=== PATIENT | male | born 1970 | race Caucasian/White ===

== ENCOUNTER 2017-04-16 17:10 | Emergency (ER) | payer SELFPAY ==
[2017-04-16] MEDS ORDERED: Ketorolac 60 MG/2 ML SDV IM ONE (17:37)
[2017-04-16 19:52] VITALS: BP 119/77
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
[2017-04-16] MEDS ORDERED: Acetaminophen/HYDROcodone 325-5 MG Tab PO ONE (21:01)
== END 2017-04-16 23:10 | disposition home or self-care (01) ==
LOC: FB.ED 17:10
DX: S09.90XA Unspecified injury of head, initial encounter (principal); K04.7 Periapical abscess without sinus; R22.9 Localized swelling, mass and lump, unspecified; M54.89 Other dorsalgia; J45.909 Unspecified asthma, uncomplicated; F17.210 Nicotine dependence, cigarettes, uncomplicated; Z88.1 Allergy status to other antibiotic agents
CPT/HCPCS: 70450; 70486; 96372; 99283; A9270; J1885; J2360; 99284

== ENCOUNTER 2017-04-23 19:22 | Emergency (ER) | payer SELFPAY ==
[2017-04-23] MEDS ORDERED: Lidocaine 1% with EPINEPHrine 1:100,000 10 ML MDV INJECT ONE (19:30)
[2017-04-23] MEDS ORDERED: cefTRIAXone 1,000 MG VIAL IM ONE (20:35)
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
[2017-04-23 21:51] VITALS: BP 111/62
== END 2017-04-23 21:15 | disposition home or self-care (01) ==
LOC: FB.ED 19:22
DX: S01.01XD Laceration without foreign body of scalp, subsequent encounter (principal); L02.811 Cutaneous abscess of head [any part, except face]; W19.XXXD Unspecified fall, subsequent encounter
CPT/HCPCS: 10060; 87070; 87075; 87205; 96372; 99282; 99283; A4217; J0696

== ENCOUNTER 2024-05-02 20:40 | Emergency (ER) | payer BC ==
[2024-05-02] MEDS ORDERED: Cephalexin 500 MG Cap PO ONE (20:41)
[2024-05-02] MEDS ORDERED: Lidocaine 2% 20 ML MDV INFILT ONE (20:41)
[2024-05-02] MEDS: Diphtheria,Pertussis(Acell),Tetanus Vaccine 0.5 ML Syringe IM ONE (21:40)
[2024-05-02 22:44] VITALS: BP 123/80; PULSE 77
== END 2024-05-02 21:52 | disposition home or self-care (01) ==
LOC: FB.ED 20:40
DX: S61.213A Laceration without foreign body of left middle finger without damage to nail, initial encounter (principal); Z79.899 Other long term (current) drug therapy; Z90.49 Acquired absence of other specified parts of digestive tract; Z23 Encounter for immunization; W26.8XXA Contact with other sharp object(s), not elsewhere classified, initial encounter; Y93.89 Activity, other specified
CPT/HCPCS: 12001; 90471; 90715; 99282-25; 99283; A9270-GY

== ENCOUNTER 2024-08-01 19:47 | Emergency (ER) | payer BC ==
[2024-08-01] MEDS ORDERED: Sulfamethoxazole/Trimethoprim 800-160 MG Tab PO ONE (19:48)
[2024-08-01 20:33] VITALS: BP 106/73; PULSE 86
== END 2024-08-01 20:22 | disposition home or self-care (01) ==
LOC: FB.ED 19:47
DX: L03.114 Cellulitis of left upper limb (principal); Z90.49 Acquired absence of other specified parts of digestive tract
CPT/HCPCS: 99283; A9270